=== PATIENT | male | born 1975 | race Caucasian/White ===

== ENCOUNTER 2021-07-22 20:01 | Emergency (ER) | payer OTHER ==
[2021-07-22 20:03] VITALS: BP 133/82; PULSE 52; TEMP 98; BMI 27.3
== END 2021-07-22 21:06 | disposition home or self-care (01) ==
LOC: JERFT 20:01
DX: S16.1XXA Strain of muscle, fascia and tendon at neck level, initial encounter (principal); V89.2XXA Person injured in unspecified motor-vehicle accident, traffic, initial encounter; Y92.9 Unspecified place or not applicable
CPT/HCPCS: 99283-25